=== PATIENT | male | born 1955 | race Caucasian/White ===

== ENCOUNTER → 2017-04-14 | Outpatient (CLI) | payer OTHER | LOC: BRMIMAGING 09:03 | PROVIDERS: ATTEND Internal Medicine | DX: Z13.820 Encounter for screening for osteoporosis (principal); E21.3 Hyperparathyroidism, unspecified; Z82.62 Family history of osteoporosis ==

== ENCOUNTER → 2017-04-25 | Day surgery (SDC) | payer OTHER ==
--- NOTE | 2017-04-29 08:02 | GOP ---
[f rep st] OPERATIVE REPORT DATE OF OPERATION: 04/25/2017 SURGEON: Geoffrey Malik MD PREOPERATIVE DIAGNOSIS: Elevated PSA. POSTOPERATIVE DIAGNOSIS: Elevated PSA. PROCEDURE PERFORMED: Ultrasound-guided biopsies of the prostate. FINDINGS: INDICATIONS: The patient is a gentleman with elevated PSA. After discussing options, he elected to undergo biopsies. DESCRIPTION OF PROCEDURE: With the patient in the left lateral decubitus position, the prostate prob e with needle guide was inserted. Images were obtained and interpreted separately. Measurements wer e then taken. 1% lidocaine was used to anesthetize the periprosthetic tissue. 12 biopsies were obta ined under ultrasound guidance at the left and right bases, mid, apical regions. The patient tolerat ed the procedure well, and was sent home in stable condition. /[id number]/MODL
== END | disposition home or self-care (01) ==
LOC: BMCIMAGING 07:28
PROVIDERS: ATTEND Urology
PROC: 0VB07ZX Excision of Prostate, Via Natural or Artificial Opening, Diagnostic (ICD-10-PCS; principal; 2017-04-25)
DX: R97.20 Elevated prostate specific antigen [PSA] (principal)